=== PATIENT | male | born 1985 | race Caucasian/White ===

== ENCOUNTER 2023-11-29 23:55 | Inpatient (IN) | payer OTHER, SELFPAY ==
[2023-11-29 20:31] VITALS: BP 117/78
[2023-11-29 20:35] VITALS: BMI 25.9
[2023-11-29 21:12] VITALS: BP 111/76
--- NOTE | 2023-11-29 21:42 | ED.GENMED ---
History of Present Illness
General
Chief Complaint: Seizure
Source: patient and family (Mom)
Time Seen by Provider: 11/29/23 20:19
History of Present Illness
History of Present Illness:
38-year-old male presents to the emergency room after having a seizure. Patient has a history of seizures. He takes Keppra, Depakote. Patient is compliant. Patient was at a wedding which involves being outside for a significant amount of time in
very hot weather today. They did move inside but he did seem to be suffering from the heat. He was given 2 sprays of intranasal midazolam. Patient is postictal on arrival but is following commands. Last seizure was 2 years ago. However mom is
not surprised that he had a seizure given the circumstances today. Patient was also a member of the bridal constitution party which added some stress to him as well.
Phy Exam
Physical Exam
Physical Exam:
General: Awake, Alert, Oriented X x 1. Appears postictal
Vitals: unremarkable
Head: Atraumatic
Eyes: Pupils equal, EOMI
Mouth: Bite to the tip of tongue that does not require suturing
Throat: Airway intact, no exudates
Neck: Trachea midline
Lungs: Clear and equal b/l
Heart: Regular rate, no murmurs
Abd: Soft, Nontender, No pulsatile mass
Neuro: Cranial nerves intact, moving all 4 extremities equally
Skin: Warm, dry, no rash
Extremities: pulses equal b/l, no edema
Course
Orders/Labs/Results
Orders:
Orders
11/29/23 21:48
Basic Metabolic Panel Urgent
Complete Blood Count/With Diff Urgent
Depakane Urgent
11/29/23 21:51
Lamotrigine [Lamictal] 125 mg PO NOW STA
Valproic Acid [Depakene] 1,750 mg PO NOW STA
11/29/23 21:55
Levetiracetam [Keppra] 2,500 mg PO NOW STA
11/29/23 22:47
Osmolality, Random Urine Urgent
Date Specimen was Collected: 11/29/23
Time Specimen was Collected: 22:42
Urinalysis Urgent
Date Specimen was Collected: 11/29/23
Time Specimen was Collected: 22:42
Urine Sodium Urgent
Date Specimen was Collected: 11/29/23
Time Specimen was Collected: 22:42
11/29/23 23:00
3% Sodium Chloride 250 ml [Sodium Chloride 3%] 250 ml IV ONCE
Flush (0.9% Sodium Chloride) [Flush (Nss)] See Dose Instructions IV PER PROTOCOL
11/29/23 23:43
Admit/Transfer Patient As Directed
Co-Sign Provider:
Level of Care: Inpatient admission
Assign to:: IMU- Intermediate Care
Physician / Group: [email or web address]
Diagnosis: Single episode of breakthrough Seizure Severe hyponatremia
Reason for Hospitalization: Single episode of breakthrough Seizure
Severe hyponatremia likely symptomatic
heat related illness
Expected length of stay greater than two midnights?: Yes
ELOS- Estimated Length of Stay in days: 3
I certify the patient meets the requirements for IP care: Yes
11/29/23 23:45
Code Status As Directed
Resuscitation Status: Full Code
11/29/23 23:47
Propranolol [Inderal] 10 mg PO BID PRN
11/30/23 08:00
Divalproex Delayed Rel. 12 Hr [Depakote (12 Hr Release)] 1,500 mg PO DAILY
Levetiracetam [Keppra] 2,500 mg PO BID
lamotrigine [Lamictal] 125 mg PO BID
11/30/23 18:00
Divalproex Delayed Rel. 12 Hr [Depakote (12 Hr Release)] 1,750 mg PO QPM
Abnormal Lab Results
11/29/23 11/29/23
21:48 22:47
WBC 13.9 H 10^3/uL
(4.8-10.8)
RBC 3.64 L 10^6/uL
(4.70-6.10)
Hgb 11.3 L g/dL
(13.0-18.0)
Hct 30.9 L %
(39.0-52.0)
Abs Immat Gran (auto) 0.1 H 10^3/uL
(0-0.05)
Absolute Neuts (auto) 10.3 H 10^3/uL
(1.4-6.5)
Absolute Monos (auto) 1.2 H 10^3/uL
(0.1-0.6)
Lymphocytes % 16.0 L %
(20.5-51.1)
Sodium 118 L* mmol/L
(135-145)
Chloride 87 L mmol/L
(98-107)
Carbon Dioxide 20 L mmol/L
(22-30)
BUN 8 L mg/dl
(9-20)
Creatinine 0.4 L mg/dL
(0.7-1.3)
Urine Ketones 1+ A
(Negative)
11/29/23 21:48
11/29/23 21:48
Vital Signs
Initial and Last Documented VS:
Initial Vital Signs
Temp Pulse Resp BP Pulse Ox
98.6 F 81 19 117/78 93
11/29/23 20:31 11/29/23 20:31 11/29/23 20:31 11/29/23 20:31 11/29/23 20:31
Last Documented Vital Signs
Temp Pulse Resp BP Pulse Ox
98.6 F 75 15 111/76 92
11/29/23 20:31 11/29/23 21:30 11/29/23 21:30 11/29/23 21:12 11/29/23 21:30
MDM/Problems Addressed
Differential Diagnosis Includes:
Medication noncompliance, breakthrough seizure, heat exhaustion
MDM/Problems Addressed:
Patient had seizure at wedding. He arrives postictal. Did not appear to return to his baseline during his period of observation. Expectation was that patient would be able to be discharged home however chemistries showed the patient was
significantly hyponatremic with a sodium of 118. Patient does endorse drinking a lot of fluids over the past 2 days to maintain hydration and heat. Also antiepileptics may contribute to hyponatremia. Patient will be started on hypertonic saline
at 40 cc an hour. He will require hospitalization to carefully monitor normalization of his sodium over an extended period of time.
Chronic conditions affecting care: Other (Epilepsy)
*Pulse Oximetry
Patient hypoxic: no
*Critical Care Note
Total Time (30-74mins, 75-104mins- exclusive of procedures): 35 min
comment:
Critical care statement: A total of 35 minutes of critical care time was provided for this patient. This includes management of unstable vital signs, evaluation of the patient at bedside, reviewing the patient's pertinent medical records, discussion
with consultants, review of old EKGs and review of pertinent medical records. This time with separate from time utilized to perform the aforementioned documented procedures
ED Attending Note
-
Portions of this chart may have been created with voice recognition software.� Occasional wrong word or��sound alike� substitutions may have occurred due to the inherent limitations of voice recognition software.
Discharge Plan
Departure
Patient Disposition: Admit
Date of Disposition: 11/29/23
Time of Disposition: 22:34
Admit to: IMU
Presentation/result/management discussed w/ accepting MD/DO: Hospitalist
Condition: Serious
Discharge Problem:
Acute hyponatremia, Seizure
Interventions
Interventions:
*Risk Screen - Suicide Last Done: 11/29/23 20:36
*General Assessment Last Done: 11/29/23 20:36
*Neglect/Abuse Screening Last Done: 11/29/23 20:36
ED- Fall Risk Assessment Last Done: 11/29/23 20:38
*ED COVID-19 Vaccine History Last Done: 11/29/23 20:36
ED- Cardiac Assessment Last Done: 11/29/23 20:37
ED- Neurological Assessment Last Done: 11/29/23 20:37
ED- Pulmonary Assessment Last Done: 11/29/23 20:37
[2023-11-29] MEDS: LAMICTAL 125 MG PO (21:59)
[2023-11-29 22:00] VITALS: BP 116/87
[2023-11-29] MEDS: DEPAKENE 1750 MG PO (22:00)
[2023-11-29 22:02] LABS: % Basophils 0.3 % (0-2); % Eosinophils 0.8 % (0-6); % Immature Granulocytes 0.4 % (0-0.5); % Monocytes 8.7 % (1.7-9.3); % Neutrophils 73.8 % (42.2-75.2); Absolute Eosinophils 0.1 10^3/uL (0-0.7); Absolute Immature Granulocytes 0.1 10^3/uL (0-0.05); Absolute Lymphocytes 2.2 10^3/uL (1.2-3.4); Absolute Monocytes 1.2 10^3/uL (0.1-0.6); Absolute Neutrophils 10.3 10^3/uL (1.4-6.5); Hematocrit 30.9 % (39.0-52.0); Hemoglobin 11.3 g/dL (13.0-18.0); Mean Corp Hgb Conc. 36.6 g/dL (33.0-37.0); Mean Corpuscular Volume 84.9 fL (80.0-94.0); Nucleated Red Blood Cells % 0 % (-); Platelet Count 201 10^3/uL (130-400); Red Blood Cell Count 3.64 10^6/uL (4.70-6.10); Red Cell Dist. Width 11.9 % (11.5-14.5); White Blood Cell Count 13.9 10^3/uL (4.8-10.8)
[2023-11-29] MEDS: KEPPRA 2500 MG PO (22:06)
[2023-11-29 22:12] LABS: Blood Urea Nitrogen 8 mg/dl (9-20); Calcium 9.1 mg/dl (8.4-10.2); Carbon Dioxide 20 mmol/L (22-30); Chloride 87 mmol/L (98-107); Estimated Creatinine Clearance > 125 ml/min; Glucose 90 mg/dl (70-99); Potassium 4.5 mmol/L (3.5-5.1); Sodium 118 mmol/L (135-145); eGFR > 60.00
[2023-11-29 22:13] LABS: Depakane 61.5 ug/ml (50.0-120.0)
[2023-11-29] MEDS: SODIUM CHLORIDE 3% 250 IV (22:49)
[2023-11-29] MEDS: FLUSH (NSS) 1 FLUSH IV (22:53)
[2023-11-29 22:55] LABS: Osmolality Urine 359 mOsm/kg (300-900)
[2023-11-29 22:56] LABS: Urine Albumin Negative (Neg - Trace); Urine Bilirubin Negative (Negative); Urine Character Clear (Clear); Urine Color Yellow; Urine Glucose Negative (Negative); Urine Ketone 1+ (Negative); Urine Leukocyte Negative (Negative); Urine Nitrite Negative (Negative); Urine Occult Blood Negative (Negative); Urine Urobilinogen Negative (Neg - 1+)
[2023-11-29 23:00] VITALS: BP 123/80
[2023-11-29 23:19] LABS: Urine Sodium 77 mmol/L (30-90)
--- NOTE | 2023-11-29 23:37 | HPS.HSE ---
Family Physician
-
Family Physician: NOT KNOW UNKNOWN - PT DOES
Chief Complaint
-
Sz
History of Present Illness
HPI
38M [facility] , no prior admission to HX Sz on Keppra , Depakote seeen at ER for Sz and low Na
Episode of tonic clonic Sz
- while attending lengthy amount of time in very hot weather attending outdoor Wdeding ceremony
- HX Sz Keppra, Depakote and reports medication complinace
- Depakote level is 61 upon admission
- EMS was called - cessation of Sz s/p 2 sprays of intranasal midazolam by EMS
- Post ictal phase on arrival to ER
At ER:
Na 118 - presumed symptomatic with neurological symptoms
Per ER d/w Neuro and Renal; 3 % sline is initiated
IV Keppra 2500mg loading
PO Depakene 1750 mg now
PO Lamictal 125 mg x 1
Medical History
Past Medical History
Past Medical History: Reports Other (Seizure disorder )
Past Surgical History: Reports None
Social History
Tobacco: Non-smoker
Alcohol: Occasional
Family History
Family History: Not pertinent
Allergies / Home Medications
Allergies reflects when Allergies were last updated in [facility].
Home Medications with original date entered in [facility]
Allergy/Medication List:
Allergies
Allergy/AdvReac Type Severity Reaction Status Date / Time
No Known Allergies Allergy Verified 11/29/23 20:35
Home Medications
divalproex 500 mg tablet,delayed release (Depakote) 1,500 mg PO DAILY 11/29/23
divalproex 500 mg tablet,delayed release (Depakote) 1,750 mg PO QPM 11/29/23
lamotrigine 25 mg tablet (Lamictal) 125 mg PO BID 11/29/23
levetiracetam 500 mg tablet (Keppra) 2,500 mg PO BID 11/29/23
propranolol 10 mg tablet 10 mg PO BID PRN anxiety 11/29/23
Review of Systems
-
Constitutional: Reports No Symptoms
EENT: Reports No Symptoms
Respiratory: Reports No Symptoms
Cardiac: Reports No Symptoms
Abdomen/GI: Reports No Symptoms
: Reports No Symptoms
Musculoskeletal: Reports No Symptoms
Skin: Reports No Symptoms
Neurological: Reports See HPI
Endocrine: Reports No Symptoms
Hematologic/Lymphatic: Reports No Symptoms
Psych: Reports No Symptoms
Physical Exam
Vital Signs
Vital Signs
Temp Pulse Resp BP Pulse Ox
98.6 F 75 15 111/76 92
11/29/23 20:31 11/29/23 21:30 11/29/23 21:30 11/29/23 21:12 11/29/23 21:30
Physical Exam
General: Well Developed, Well Nourished and No Apparent Distress
HEENT: NormoCephalic, Moist mucous membranes and Atraumatic
Respiratory: Clear
Cardiac: S1/S2 and Regular Rhythm; No Murmur or Rub
GI: Soft, Non Tender, Non Distended and Normal Bowel Sounds; No Organomegaly
Rectal: Deferred by Provider
Musculoskeletal: No Clubbing, No Cyanosis and No Edema
Skin: No Rash
Neuro: Nonfocal/grossly intact
Laboratory Results
-
11/29/23 21:48
11/29/23 21:48
Data Reviewed
-
Lab Data: Labs Reviewed by me
Impression/Plan
-
VS: BP 111/78 POx 92 on RA otherwise unremarkable
Data: No prior Data in [facility]
WCC 13.9
Hgb 11.3
nl Plt
Na 118
Cl 87
CO2 20
BUN 8
Cr 0.4
nl eGFR
Ur Osm 359
[place] 61
NO PRIOR admission to
ASSESSMENT & PLAN
Single episode of breakthrough Seizure provoked by environmental heat illness complicated with dehydration and severe hyponatremia
HX Sz Keppra, Depakote and reports medication compliance
- Depakote level is 61 upon admission
- IV Keppra 2500mg loading
- PO Depakene 1750 mg now
- PO Lamictal 125 mg x 1
- Then cont all OP AEDs
- fall precaution
- Neuro consulted
Severe hyponatremia likely symptomatic and precipitated break thru Sz
Associated with heat related illness - heat stroke vs heat exhaustion due to prolonged stay at outdoor wedding in very hot weather
- 3 % saline per Renal
- BMP q3hrs
- Renal consulted
DVT Px: SCD
Code: Full code
IMU
[2023-11-30] VITALS (18 sets, daily range): BP systolic 101–142; BP diastolic 66–95; BMI 24.3
--- NOTE | 2023-11-30 01:30 | PTCARENOTE ---
Patient received from ED, AAOx3, ambulated from stretcher to the bed. NSR on monitor, afebrile, blood pressure as documented. lungs clear pulse ox 95% on room air. Abdomen soft. Voiding. #18 g in left wrist with 3% infusing as ordered
[2023-11-30 04:47] LABS: Hematocrit 30.7 % (39.0-52.0); Mean Corp Hgb Conc. 35.8 g/dL (33.0-37.0); Mean Corpuscular Hgb 30.9 pg (27.0-31.0); Mean Corpuscular Volume 86.2 fL (80.0-94.0); Mean Platelet Volume 9.8 fL (7.4-10.4); Platelet Count 172 10^3/uL (130-400); Red Blood Cell Count 3.56 10^6/uL (4.70-6.10)
[2023-11-30 05:00] LABS: ALT (SGPT) 60 U/L (0-50); AST (SGOT) 118 U/L (17-59); Albumin 3.5 g/dl (3.5-5.0); Alkaline Phosphatase 65 U/L (38-126); Blood Urea Nitrogen 5 mg/dl (9-20); Carbon Dioxide 21 mmol/L (22-30); Chloride 95 mmol/L (98-107); Estimated Creatinine Clearance > 125 ml/min; Glucose 93 mg/dl (70-99); Potassium 3.9 mmol/L (3.5-5.1); Sodium 124 mmol/L (135-145); Total Bilirubin 0.5 mg/dl (0.2-1.3); Total Protein 5.9 g/dl (6.3-8.2); eGFR > 60.00
--- NOTE | 2023-11-30 05:30 | PTCARENOTE ---
Na level discussed with CLIENT BUSINESS MANAGER, order received to continue 3%
[2023-11-30] MEDS: SODIUM CHLORIDE 3% 250 IV (05:35)
[2023-11-30] MEDS: KEPPRA 2500 MG PO ×2 (08:48→20:01)
[2023-11-30] MEDS: DEPAKOTE (12 HR RELEASE) 1500 MG PO ×2 (08:49→18:44)
[2023-11-30] MEDS: LAMICTAL 25 MG PO ×2 (08:49→20:01)
[2023-11-30] MEDS: LAMICTAL 100 MG PO ×2 (08:49→20:02)
--- NOTE | 2023-11-30 08:57 | W.CON.NEPH ---
Consultation
-
Date/Time Consultation Requested: November 30, 2023 7 AM
Date/Time Consultation Performed: November 30, 2023 9 AM
Requesting Provider: Dr. Schilling
Performing Provider: Dr. Heath
Reason for Consultation: Hyponatremia
Medical History
-
Chief Complaint: Seizure
History of Present Illness:
This is a 38-year-old gentleman with known history of seizures for many years since age of 18 who has been treated with a multi antiepileptic drug regimen. He said that he has not had a seizure in 2 years time though prior to that it was 5 months
before. He says that he had changed neurologists and that with closer monitoring of his levels with the addition of Lamictal that his seizure control has been improved. He also notes that his prior seizures always seem to be related to hot
weather. This weekend he had been part of a bridal democrat and was one of the groomer's been. He began his day yesterday at 11 AM and was there outside for the next several hours. He had made it through the vice president of instruction but afterwards had suffered a
witnessed seizure and had brought him to the emergency room. Here he was noted to have a sodium level of 118. His blood pressure was otherwise normal. He denies any noncompliance with his seizure medications. He does have some mild anxiety
though this is typically well-controlled with as needed propranolol which is not often. He received hypertonic saline overnight and we are asked to assist with management of his hyponatremia
Past Medical History
Seizure disorder, anxiety
Social History
Tobacco: Non-Smoker
Alcohol: Occasional
Family History
No CKD
Allergies / Home Medications
Allergy/AdvReac Type Severity Reaction Status Date / Time
No Known Allergies Allergy Verified 11/29/23 20:35
�Medication �Instructions �Recorded �Confirmed �Type
divalproex 500 mg tablet,delayed 1,500 mg PO DAILY 11/29/23 11/29/23 History
release (Depakote)
divalproex 500 mg tablet,delayed 1,750 mg PO QPM 11/29/23 11/29/23 History
release (Depakote)
lamotrigine 25 mg tablet (Lamictal) 125 mg PO BID 11/29/23 11/29/23 History
levetiracetam 500 mg tablet 2,500 mg PO BID 11/29/23 11/29/23 History
(Keppra)
propranolol 10 mg tablet 10 mg PO BID PRN anxiety 11/29/23 11/29/23 History
Review of Systems
-
Mild grogginess only.
All other systems: Negative unless noted
Physical Exam
Vital Signs
Vital Signs
Temp Pulse Resp BP Pulse Ox
97.8 F 72 14 115/76 96
11/30/23 07:00 11/30/23 03:00 11/30/23 03:00 11/30/23 03:00 11/30/23 03:00
Lab Results
WBC 10.0 10^3/uL (4.8-10.8) 11/30/23 04:35
RBC 3.56 10^6/uL (4.70-6.10) L 11/30/23 04:35
Hgb 11.0 g/dL (13.0-18.0) L 11/30/23 04:35
Hct 30.7 % (39.0-52.0) L 11/30/23 04:35
Plt Count 172 10^3/uL (130-400) 11/30/23 04:35
eGFR > 60.00 11/30/23 04:35
Albumin 3.5 g/dl (3.5-5.0) 11/30/23 04:35
Physical Exam
Patient is awake alert oriented and in no distress. Mood and affect were pleasant, insight and judgment were good. Pupils are equal round and reactive to light, extraocular movements are intact, sclera were anicteric. Hearing was normal, ears and
nose are intact. Oropharynx was clear. Neck was supple with trachea midline and no thyromegaly. Heart was regular rate and rhythm without rubs. Lower extremities without edema. Lungs were clear to auscultation bilaterally and with normal
excursion. Abdomen was soft, nontender, with normal active bowel sounds, and no hepatosplenomegaly. Skin was without rash and with normal turgor.
Data Reviewed
-
Labs: Labs Reviewed by me (Hemoglobin 11.0, sodium 124, BUN 5, creatinine 0.4, AST 118, ALT 60, urine osmolality 359, urine sodium 77)
Old Records: Requested and Reviewed (Sodium level on June 2023 135)
Assessment/Plan
-
Assessment
Hyponatremia
Seizure disorder
Witnessed seizure
Elevated LFTs
Plan
Hold hypertonic at this time
Serial BMP
Request older LFTs
Modest fluid restriction
Increase solute intake
[2023-11-30 10:30] LABS: Blood Urea Nitrogen 5 mg/dl (9-20); Calcium 9.1 mg/dl (8.4-10.2); Carbon Dioxide 22 mmol/L (22-30); Chloride 97 mmol/L (98-107); Estimated Creatinine Clearance > 125 ml/min; Glucose 91 mg/dl (70-99); Potassium 4.4 mmol/L (3.5-5.1); Sodium 127 mmol/L (135-145); eGFR > 60.00
--- NOTE | 2023-11-30 11:22 | CON.NEURO4 ---
Consultation - Neurology 4
-
CONSULTING PHYSICIAN: Joshua Menard
REFERRING PHYSICIAN: Hospitalist
DICTATED BY: Joshua Menard
DATE/TIME OF REQUEST: 11/30/23
DATE/TIME OF CONSULTATION: 11/30/23
Reason for Consultation: Seizure, hyponatremia, history of epilepsy
History of Present Illness:
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 Patient was at a wedding when he had generalized seizure with loss of consciousness.
He received 10 mg nasal midazolam from EMS. The wedding was outdoors and patient has been drinking a lot of pure water recently over the past couple of days with the recent heat wave. His last seizure was 2 years ago.
His first signs of epilepsy started in late childhood/teenager years with some myoclonic jerks in the morning. He was diagnosed with juvenile myoclonic epilepsy at around age 18, started on Depakote at that time. He had generalized seizure for the
first time at approximately age 26. Levetiracetam was added several years ago and more recently Lamotrigine. He has been very compliant with medications with no missed doses and no medication changes recently. He sees a neurologist regularly in
[place]. Hot weather has been a trigger for seizures in the past for him.
Currently patient feeling okay, no complaints. Denies any recent illnesses, vomiting, vision change, unusual headaches.
Past Medical History: Juvenile myoclonic epilepsy
Surgical History: None
Family History: Non-contributory
Social History: Lives at home and employed, no tobacco, no alcohol, no recreational drugs
Allergies: No known drug allergies
Review of Symptoms:
Patient denies any fever, headache, chest pain, shortness of breath, GI or symptoms.
Physical Exam:
Well appearing middle aged man no head trauma, normal eyes, neck no masses, heart rate regular, breathing unlabored, abdomen soft non tender, no lower extremity edema
Neurologic Examination:
The patient is awake, alert and oriented x 3. He is able to follow commands and answer questions appropriately. There is no aphasia or dysarthria. On cranial nerve assessment, pupils are 3 mm bilateral, round and reactive to light and
accommodation. Visual goodwin are full. Extraocular movements are intact. No nystagmus. Facial sensations are intact and bilaterally symmetrical, there is no facial asymmetry. Hearing is intact bilaterally to normal conversation volume. Tongue
palate and uvula are midline. Sternocleidomastoid strengths are full bilaterally. Motor strengths are 5/5 bilateral upper and lower extremities on medical research Ashley scale. There is no drift or involuntary movement noted. Deep tendon reflexes
are 2+ bilateral upper and lower extremities and Babinski is absent bilaterally. Intact light touch upper and lower extremities. Coordination is intact by finger to nose bilaterally.
Neuro Imaging: CT head non contrast unremarkable, no infarcts, masses, or acute abnormalities
Impressions
1. History of myoclonic epilepsy maintained on Depakote, Levetiracetam, Lamotrigine. Compliant with medication and last seizure was 2 years ago or more.
2. Hyponatremia, suspected in part due to significant free water intake. Probably a mildly symptomatic hyponatremia leading to lowered seizure threshold in a patient with underlying tendency towards seizures at baseline (epilepsy). Should be
kept in mind that Depakote, Levetiracetam, Lamotrigine can rarely lead to hyponatremia probably through SIADH mechanisms, but with the context of lots of free water intake these medications as cause I feel is unlikely.
3. Provoked seizure in part due to heat as well as hyponatremia.
4. Reassuring mental status and neurologic exam currently.
Recommendations:
1. Follow sodium levels, free water restriction
2. Hold off further 3% hypertonic saline
3. No changes to his existing home anti seizure medications. Keep going the same as home.
4. Follow mental status monitor clinically for seizures
5. No indication for obtaining EEG at this time
6. My office will report seizure event to the [facility] as a seizure that is felt to be provoked seizure from transient nonrecurring metabolic disturbance in the form of severe. Recommend to the patient that for the time being he not drive
but will depend on the assessment of the [place] DMV
Discussed patient care with: Patient
--- NOTE | 2023-11-30 12:21 | CM ---
CM following re: discharge planning.
Reviewed pt's chart, met with pt.
Pt is a 38 year old male, admitted with primary dx of Seizure, hyponatremia, history of epilepsy.
Pt reports he lives alone in a 2SH, 3 steps to enter, has no children, has supportive parents. Pt reports he was diagnosed with Seizure at the age of 18 and has had first episode of Seizure at the age of 26. Pt described himself as independent in
all areas [employer], works from home. Pt stated his parents will transport him home at discharge. Pt is aware of driving restrictions due to dx of Seizure.
PCP: Triston Webb
Pharmacy: [facility]
D/C plan: home no needs. parents to transport at discharge.
CM will follow with discharge plan updates as hospitalization progresses
[2023-11-30 15:30] LABS: Blood Urea Nitrogen 7 mg/dl (9-20); Calcium 9.6 mg/dl (8.4-10.2); Carbon Dioxide 25 mmol/L (22-30); Chloride 98 mmol/L (98-107); Estimated Creatinine Clearance > 125 ml/min; Glucose 107 mg/dl (70-99); Potassium 4.6 mmol/L (3.5-5.1); Sodium 131 mmol/L (135-145); eGFR > 60.00
--- NOTE | 2023-11-30 16:23 | W.PN.HOSP.TC ---
Today's Communication/Plan
-
transfer to tele
OOB as tolerates
recheck labs in AM
Assessment / Plan
Assessment / Plan
Single episode of breakthrough Seizure provoked by environmental heat illness complicated with dehydration and severe hyponatremia
HX Sz Keppra, Depakote and reports medication compliance
- Depakote level is 61 upon admission
- IV Keppra 2500mg loading
- PO Depakene 1750 mg now
- PO Lamictal 125 mg x 1
- Then cont all OP AEDs
- fall precaution
- Neuro consulted, input appreciated
Severe hyponatremia likely symptomatic and precipitated break thru Sz
Na 118-->124-->127-->131
Associated with heat related illness - heat stroke vs heat exhaustion due to prolonged stay at outdoor wedding in very hot weather
- 3 % saline per Renal stopped
- Renal consulted input appreciated, discussed with Dr. Heath
Transfer to tele, recheck labs in AM
DVT Px: SCD
Code: Full code
IMU
Anticipated Discharge: 24 - 48 hours
Subjective/Interval History
-
Date of Service: November 30, 2023
Pt is alert and conversant
Objective Data
-
Labs:
Laboratory Results
11/30/23 11/30/23 11/30/23
04:35 09:02 14:53
WBC 10.0
Hgb 11.0 L
Hct 30.7 L
Plt Count 172
Sodium 124 L 127 L Pending
Potassium 3.9 4.4 Pending
Chloride 95 L 97 L Pending
Carbon Dioxide 21 L 22 Pending
BUN 5 L 5 L Pending
Creatinine 0.4 L 0.4 L Pending
Glucose 93 91 Pending
Calcium 9.0 9.1 Pending
Total Bilirubin 0.5
AST 118 H
ALT 60 H
Alkaline Phosphatase 65
11/30/23
15:11
WBC
Hgb
Hct
Plt Count
Sodium 131 L
Potassium 4.6
Chloride 98
Carbon Dioxide 25
BUN 7 L
Creatinine 0.5 L
Glucose 107 H
Calcium 9.6
Total Bilirubin
AST
ALT
Alkaline Phosphatase
Vital Signs:
Vital Signs
Temp Pulse Resp BP Pulse Ox
98.4 F 77 18 117/95 95
11/30/23 15:00 11/30/23 12:00 11/30/23 11:00 11/30/23 12:00 11/30/23 12:30
I&O
11/29/23 11/30/23 12/01/23
06:59 06:59 06:59
Intake Total 200 / 240 440 / 440
Output Total 900 / 900
Balance 200 / 240 -460 / -460
Review of Systems
-
History Source: Patient and Coordinated Provider
Constitutional: Reports No Symptoms; Denies Fever
EENT: Reports No Symptoms Reported
Respiratory: Reports No Symptoms
Cardiac: Reports No Symptoms
Abdomen/GI: Reports No Symptoms
Musculoskeletal: Reports No Symptoms
Neuro: Reports No Symptoms; Denies Dizzy, Headache or Weakness
Physical Exam
-
General: Well Developed, Well Nourished and No Apparent Distress
HEENT: Normocephalic, Atraumatic and Moist Mucous Membranes
Respiratory: Clear to Auscultation; Negative Wheezes, Rales or Rhonchi
Cardiac: Regular Rhythm and S1/S2
GI: Soft, Nontender and Nondistended
Musculoskeletal: No Clubbing, No Cyanosis and No Edema
Neuro: Awake, Alert and Oriented
[2023-11-30] MEDS: DEPAKOTE (12 HR RELEASE) 250 MG PO (18:44)
--- NOTE | 2023-11-30 21:00 | PTCARENOTE ---
Received patient form ICU. Patient AAOx4. Ambulating with steady gait, no c/o pain. Call santana in reach, plan of care continues.
[2023-12-01 03:55] VITALS: BP 119/78
[2023-12-01 05:39] LABS: ALT (SGPT) 70 U/L (0-50); AST (SGOT) 104 U/L (17-59); Albumin 4.1 g/dl (3.5-5.0); Alkaline Phosphatase 79 U/L (38-126); Blood Urea Nitrogen 9 mg/dl (9-20); Calcium 9.6 mg/dl (8.4-10.2); Carbon Dioxide 21 mmol/L (22-30); Chloride 103 mmol/L (98-107); Direct Bilirubin 0.1 mg/dl (0.0-0.4); Estimated Creatinine Clearance > 125 ml/min; Glucose 92 mg/dl (70-99); Sodium 134 mmol/L (135-145); Total Bilirubin 0.3 mg/dl (0.2-1.3); Total Protein 6.7 g/dl (6.3-8.2); eGFR > 60.00
[2023-12-01 06:00] VITALS: BMI 23.5
--- NOTE | 2023-12-01 07:28 | W.PN.NEURO.1 ---
Today's Communication / Plan
-
-Continue home seizure medications same doses
-Discussed some salt and electrolytes along with free water in times of great heat in the future
-Monitor clinically
-No barriers to discharge from my perspective
-Continue to follow with his regular neurologist outpatient
My office will report to the [facility] but with the caveat that this would be considered a provoked seizure due to transient clearing metabolic illness. Discussed this with the patient and he understands my recommendation to not drive for the
time being until he follows up with the [facility]
Will sign off call with questions and concerns
Subjective/Objective
Subjective Data
Date of Service: December 01, 2023
No acute events, feeling well, no complaints at this time
Objective Data
Vital Signs
Temp Pulse Resp BP Pulse Ox
98.1 F 74 20 119/78 96
12/01/23 03:55 12/01/23 03:55 12/01/23 03:55 12/01/23 03:55 12/01/23 03:55
Lab Results
11/30/23 04:35
12/01/23 04:34
Sodium 134 mmol/L (135-145) L 12/01/23 04:34
Potassium 5.0 mmol/L (3.5-5.1) 12/01/23 04:34
BUN 9 mg/dl (9-20) 12/01/23 04:34
Glucose 92 mg/dl (70-99) 12/01/23 04:34
Calcium 9.6 mg/dl (8.4-10.2) 12/01/23 04:34
Patient Allergies
No Known Allergies Allergy (Verified 11/29/23 20:35)
Review of Systems
-
History Source: Patient
All other systems: Reviewed and negative
Constitutional: No Symptoms
EENT: No Symptoms Reported
Respiratory: No Symptoms
Cardiac: No Symptoms
Abdomen/GI: No Symptoms
Genitourinary: No Symptoms
Musculoskeletal: No Symptoms
Skin: No Symptoms
Neuro: See existing Neuro Note
Endocrine: No Symptoms
Hematologic / Lymphatic: No Symptoms
Allergy / Immunology: No Symptoms
Physical Exam
-
General: Comfortable
Eyes: No Ptosis
HEENT: Normocephalic
Neck: No Bruits Bilaterally
Respiratory: Clear to Auscultation
Cardiac: Regular Rhythm
GI: Normal Bowel Sounds
Skin: Unremarkable
Extremities: No Clubbing
Psych: Unremarkable
Extended Neurological Exam
Mood & Affect: Mood Unremarkable and Affect Unremarkable
Attention Span & Concentration: Awake, Alert and Interactive
Memory: Unremarkable
Tremor: Hand Tremor Absent
Involuntary Movement: None
Speech: Quality Unremarkable and Quantity Unremarkable; Negative Expressive Aphasia or Receptive Aphasia
Cranial Nerve II: Left Eye: Pupillary Reactivity Unremarkable and Pupillary Size Unremarkable
Cranial Nerve II: Right Eye: Pupillary Reactivity Unremarkable and Pupillary Size Unremarkable
Cranial Nerves III, IV, : Extraocular Movement: Extraocular Movement Full in all Directions
Cranial Nerve V: Facial Sensation: Facial Sensation Unremarkable to Cold
Cranial Nerve VII: Facial Symmetry: Normal Facial Symmetry
Muscle Strength, Overall: Full Throughout
Pronator Drift: No Drift in Upper Extremities
Vibration Sensation: Unremarkable
Touch Sensation: Unremarkable
Coordination: [id number] Testing Unremarkable
Data Reviewed
-
CT Head: Report Reviewed and Image Reviewed
[2023-12-01 07:55] VITALS: BP 111/75
[2023-12-01] MEDS: LAMICTAL 25 MG PO (08:52)
[2023-12-01] MEDS: LAMICTAL 100 MG PO (08:52)
[2023-12-01] MEDS: DEPAKOTE (12 HR RELEASE) 1500 MG PO (08:52)
[2023-12-01] MEDS: KEPPRA 2500 MG PO (08:52)
--- NOTE | 2023-12-01 10:42 | W.PN.HOSP.TC ---
Today's Communication/Plan
-
dc home
Assessment / Plan
Assessment / Plan
Single episode of breakthrough Seizure provoked by environmental heat illness complicated with dehydration and severe hyponatremia
HX Sz Keppra, Depakote and reports medication compliance
- Depakote level is 61 upon admission
- resume Keppra 2500mg bid
- PO Depakene 1500/1750 mg
- PO Lamictal 125 mg bid
- fall precaution
- Neuro consulted, input appreciated
Severe hyponatremia likely symptomatic and precipitated break thru Sz
Na 118-->124-->127-->131-->134
Associated with heat related illness - heat stroke vs heat exhaustion due to prolonged stay at outdoor wedding in very hot weather
- 3 % saline per Renal stopped
- Renal consulted input appreciated, discussed with Dr. Heath 11/30
dc now
confirmed with Dr. Menard by phone medication dosing and clearance for dc
DVT Px: SCD
Code: Full code
dc home
see dictated note
f/u with LOLIS Pizano, PCP and Ho [place], neurology
Anticipated Discharge: Today
Subjective/Interval History
-
Date of Service: December 01, 2023
Feels well, anxiously awaiting dc
Objective Data
-
Labs:
Laboratory Results
12/01/23
04:34
Sodium 134 L
Potassium 5.0
Chloride 103
Carbon Dioxide 21 L
BUN 9
Creatinine 0.5 L
Glucose 92
Calcium 9.6
Total Bilirubin 0.3
AST 104 H
ALT 70 H
Alkaline Phosphatase 79
Vital Signs:
Vital Signs
Temp Pulse Resp BP Pulse Ox
98.3 F 79 16 111/75 95
12/01/23 07:55 12/01/23 07:55 12/01/23 07:55 12/01/23 07:55 12/01/23 09:15
I&O
11/30/23 12/01/23 12/02/23
06:59 06:59 06:59
Intake Total 200 / 240 440 / 440
Output Total 900 / 900
Balance 200 / 240 -460 / -460
Review of Systems
-
History Source: Patient and Coordinated Provider
Constitutional: Reports No Symptoms; Denies Fever
EENT: Reports No Symptoms Reported
Respiratory: Reports No Symptoms
Cardiac: Reports No Symptoms
Abdomen/GI: Reports No Symptoms
Musculoskeletal: Reports No Symptoms
Neuro: Reports No Symptoms; Denies Dizzy, Headache or Weakness
Physical Exam
-
General: Well Developed, Well Nourished and No Apparent Distress
HEENT: Normocephalic, Atraumatic and Moist Mucous Membranes
Respiratory: Clear to Auscultation; Negative Wheezes, Rales or Rhonchi
Cardiac: Regular Rhythm and S1/S2
GI: Soft, Nontender and Nondistended
Musculoskeletal: No Clubbing, No Cyanosis and No Edema
Neuro: Awake, Alert and Oriented
--- NOTE | 2023-12-01 10:48 | W.DS.TRANS ---
DC Summary - Manager Category
-
Discharge Instructions:
Instructions:
Stand-Alone Forms:
Changes to Home Medications: No
Discharge Medications:
DC Medications w/original date entered in [employer]
divalproex 500 mg tablet,delayed release (Depakote) 1,500 mg PO DAILY Seizures 11/29/23
divalproex 500 mg tablet,delayed release (Depakote) 1,750 mg PO QPM Seizures 11/29/23
lamotrigine 25 mg tablet (Lamictal) 125 mg PO BID Mental Health/Anxiety 11/29/23
levetiracetam 500 mg tablet (Keppra) 2,500 mg PO BID Seizures 11/29/23
propranolol 10 mg tablet 10 mg PO BID PRN anxiety 11/29/23
Home Medication Changes
Pending Results: No
[2023-12-01 11:14] VITALS: BP 120/78
--- NOTE | 2023-12-01 11:36 | W.PN.NEPH.PH ---
Today's Communication / Plan
-
dc
Assessment/Plan
-
Assessment
Hyponatremia
Seizure disorder
Witnessed seizure
Elevated LFTs
Plan
June LFTs were Normal
will need CMP in 2 weeks (due for OP labs already)
no FR needed at this time
-
-
Date of Service: December 01, 2023
CC / HPI / ROS
-
Chief Complaint:
hyponatremia
History of Present Illness:
Na up to 134 on FR
LFTs still elevated
BP stable
Review of Systems:
no CP/SOB
Labs
-
Labs:
WBC 10.0 10^3/uL (4.8-10.8) 11/30/23 04:35
RBC 3.56 10^6/uL (4.70-6.10) L 11/30/23 04:35
Hgb 11.0 g/dL (13.0-18.0) L 11/30/23 04:35
Hct 30.7 % (39.0-52.0) L 11/30/23 04:35
Plt Count 172 10^3/uL (130-400) 11/30/23 04:35
Sodium 134 mmol/L (135-145) L 12/01/23 04:34
Potassium 5.0 mmol/L (3.5-5.1) 12/01/23 04:34
Chloride 103 mmol/L (98-107) 12/01/23 04:34
Carbon Dioxide 21 mmol/L (22-30) L 12/01/23 04:34
BUN 9 mg/dl (9-20) 12/01/23 04:34
Creatinine 0.5 mg/dL (0.7-1.3) L 12/01/23 04:34
eGFR > 60.00 12/01/23 04:34
Glucose 92 mg/dl (70-99) 12/01/23 04:34
Calcium 9.6 mg/dl (8.4-10.2) 12/01/23 04:34
Albumin 4.1 g/dl (3.5-5.0) 12/01/23 04:34
Physical Exam
-
Vital Signs:
Vital Signs
Temp Pulse Resp BP Pulse Ox
98.8 F 86 16 120/78 95
12/01/23 11:14 12/01/23 11:14 12/01/23 11:14 12/01/23 11:14 12/01/23 11:14
Cardiovascular:: Regular rate and rhythm
Respiratory:: Bilateral: CTA
Lung Excursion:: Normal
Abdomen:: Nontender and Soft
Bowel Sounds:: Normal
Extremity Edema:: None: Bilateral:
--- NOTE | 2023-12-01 12:28 | CM ---
MD entered order for discharge .
Pt left before CM could speak with pt .
Family drove home.
PLAN Home no needs
== END 2023-12-01 11:53 | disposition home or self-care (01) | DRG 923 ==
LOC: 4 EAST ACU 23:55
PROVIDERS: ADMITTING PHYSICIAN Internal Medicine; ATTENDING PHYSICIAN Internal Medicine; CONSULT PHYSICIAN Student in an Organized Health Care Education/Training Program; EMERGENCY PHYSICIAN Emergency Medicine; OTHER PHYSICIAN Specialist
DX: T67.01XA Heatstroke and sunstroke, initial encounter (principal); E87.1 Hypo-osmolality and hyponatremia; G40.409 Other generalized epilepsy and epileptic syndromes, not intractable, without status epilepticus
CPT/HCPCS: 80048; 80053; 80164; 81003; 82248; 83935; 84300; 85025; 85027; 96360; 96361; 99291